=== PATIENT | male | born 1995 | race Caucasian/White ===

== ENCOUNTER 2020-04-28 19:46 | Emergency (ER) | payer MEDICAID ==
[~2020-04-28] VITALS: Ht 185.4 cm; Wt 59.0 kg
[2020-04-28 19:57] VITALS: Ht 185.4 cm; Wt 59.0 kg
[2020-04-28 20:23] LABS: BASOPHIL % 0.4 % (0-2); PLATELET COUNT 321 x10^3mcL (130-400); RED CELL DISTRIBUTION WIDTH 12.9 % (11.5-14.5)
[2020-04-28 20:32] LABS: CALCIUM 9.3 mg/dL (8.5-10.1); CARBON DIOXIDE 21.4 mmol/L (21-32); CHLORIDE SERUM 100 mmol/L (98-107); CREATININE SERUM 1.1 mg/dL (0.7-1.3); GFR1 > 60 mL/min; GLUCOSE SERUM 65 mg/dL (74-106); POTASSIUM SERUM 3.9 mmol/L (3.5-5.1); SODIUM SERUM 140 mmol/L (136-145)
[2020-04-28 23:21] LABS: microscopic required? NO
[2020-04-28 23:35] LABS: UA SPECIFIC GRAVITY >=1.030 (1.005-1.035); urine erythrocyte NEGATIVE (NEGATIVE)
[2020-04-29 00:04] LABS: AMPHETAMINE QUAL UR NONE DETECTED (See below)
[2020-04-30 00:53] VITALS: BP 98/57
== END 2020-04-30 00:53 | disposition home or self-care (01) ==
LOC: ED 19:46
PROVIDERS: Emergency Medicine
DX: F23 Brief psychotic disorder (principal); Z20.828 Contact with and (suspected) exposure to other viral communicable diseases
CPT/HCPCS: G0480; U0003-CS